=== PATIENT | female | born 1945 | race Caucasian/White ===

== ENCOUNTER 2017-02-09 11:08 | Outpatient (CLI) | payer MEDICARE, MEDICAID ==
[2017-02-09 12:21] LABS: Anion Gap 14 mmol/L (10-20); BUN (Urea Nitrogen) 10 mg/dL (9.8-20.1); Calc. Creatinine Clearance 0 mL/min (70-130); Calcium 9.3 mg/dL (7.8-10.44); Carbon Dioxide 23 mmol/L (23-31); Chloride 103 mmol/L (98-107); Estimated GFR-MDRD 35; Glucose 90 mg/dL (83-110); Potassium 4.3 mmol/L (3.5-5.1); Sodium 136 mmol/L (136-145)
[2017-02-09 13:00] LABS: Hemoglobin 13.4 g/dL (12.0-16.0)
[2017-02-09 18:18] LABS: Creatinine, Urine 112.65 mg/dL (47-110); Protein, Urine Random Quant Less than 10 mg/dL
== END 2017-02-09 11:09 | disposition home or self-care (01) ==
LOC: MADLAB 11:08
PROVIDERS: ATTEND Internal Medicine Nephrology
DX: I12.9 Hypertensive chronic kidney disease with stage 1 through stage 4 chronic kidney disease, or unspecified chronic kidney disease (principal); N18.3 Chronic kidney disease, stage 3 (moderate); E55.9 Vitamin D deficiency, unspecified
CPT/HCPCS: 36415; 80048; 82306; 82570; 83970; 84156; 85014; 85018

== ENCOUNTER 2017-11-17 09:45 | Outpatient (CLI) | payer MEDICARE, MEDICAID ==
[2017-11-17 11:16] LABS: Anion Gap 16 mmol/L (10-20); BUN (Urea Nitrogen) 9 mg/dL (9.8-20.1); Calc. Creatinine Clearance 0 mL/min (70-130); Calcium 8.6 mg/dL (7.8-10.44); Carbon Dioxide 17 mmol/L (23-31); Chloride 111 mmol/L (98-107); Estimated GFR-MDRD 37; Glucose 100 mg/dL (83-110); Potassium 3.9 mmol/L (3.5-5.1); Sodium 140 mmol/L (136-145)
== END 2017-11-17 09:46 | disposition home or self-care (01) ==
LOC: MADLABBHPM 09:45
PROVIDERS: ATTEND Family Medicine
DX: I10 Essential (primary) hypertension (principal)
CPT/HCPCS: 36415; 80048

== ENCOUNTER 2017-11-26 00:47 | Emergency (ER) | payer MEDICARE, MEDICAID ==
[2017-11-26] MEDS ORDERED: Ketorolac Tromethamine 30 MG/ML VIAL ONE (01:28)
[2017-11-26 01:48] LABS: #Basophils 0.2 thou/uL (0.0-0.2); #Eosinphils 0.2 thou/uL (0.0-0.7); #Lymphocytes 3.1 thou/uL (1.20-3.40); #Monocytes 1.6 thou/uL (0.11-0.59); #Neutrophils 10.7 thou/uL (1.40-6.50); %Lymphocytes 19.8 % (21.0-51.0); %Monocytes 10.1 % (0.0-10.0); %Neutrophils 68.2 % (42.0-75.0); Hemoglobin 12.4 g/dL (12.0-16.0); Mean Corpuscular HGB CONC 33.6 g/dL (32.0-36.0); Mean Corpuscular Volume 92.2 fl (81.0-99.0); Mean Platelet Volume 9.1 fL (7.4-10.4); Platelet Count 208 thou/uL (130-400); RBC Distribution Width 13.4 % (11.5-14.5); Red Blood Cell (RBC) Count 3.99 mill/uL (4.20-5.40); White Blood Cell (WBC) Count 15.7 thou/uL (4.8-10.8)
[2017-11-26 01:50] LABS: ALT (SGPT) 13 U/L (8-55); AST (SGOT) 30 U/L (5-34); Albumin 3.6 g/dL (3.4-4.8); Alkaline Phosphatase 139 U/L (40-150); Anion Gap 14 mmol/L (10-20); BUN (Urea Nitrogen) 11 mg/dL (9.8-20.1); Bilirubin, Total 0.6 mg/dL (0.2-1.2); CK (CPK) 178 U/L (29-168); Calc. Creatinine Clearance 0 mL/min (70-130); Calcium 8.6 mg/dL (7.8-10.44); Carbon Dioxide 19 mmol/L (23-31); Chloride 106 mmol/L (98-107); Estimated GFR-MDRD 33; Globulin 3.6 g/dL (2.4-3.5); Glucose 130 mg/dL (83-110); Potassium 3.4 mmol/L (3.5-5.1); Protein, Total 7.2 g/dL (6.0-8.3); Sodium 136 mmol/L (136-145)
[2017-11-26 01:57] LABS: CKMB 1.1 ng/mL (0-6.6); Troponin I Less than 0.010 ng/mL (< 0.028)
[2017-11-26] MEDS ORDERED: cefTRIAXone\\ROCEPHIN 1 GM VIAL ONE (02:11)
--- NOTE | 2017-11-26 08:05 | RAD ---
CHEST PA AND LATERAL: Date: 11/26/17 HISTORY: 72-year-old female with history of dyspnea. COMPARISON: 06/22/15. FINDINGS: There is evidence of pleural and parenchymal opacity changes in the left base consistent with small p leural effusion and some left lower lobe infiltrative changes including some left lower lobe pneumoni a with some linear subsegmental atelectatic changes noted in both bases as well. Atherosclerosis of a sidney with some ectasia. IMPRESSION: Pleural and parenchymal opacity changes in the left base, evidence for pleural effusion and possibly mild pneumonia with some linear parenchymal changes and evidence for subsegmental atelectasis. Treatm ent and short-term follow-up suggested. POS: [facility]
--- NOTE | 2017-11-26 08:34 | CT ---
PRELIMINARY REPORT/[facility]/EMERGENCY AFTER HOURS PROCEDURE: Addendum created by Adrian Rajan MD on 11/26/2017 3:29 AM Central Time ([place] & [place]) Findings discu ssed with MELI SIDDIQI MD at time of interpretation. Initial Report created on 11/26/2017 3:23 AM Ce ntral Time ([place] & [place]) EXAM: CT Abdomen and Pelvis Without Intravenous Contrast EXAM DATE/TIME: 11/26/2017 1:46 AM CLINICAL HISTORY: 72 years old, female; Pain; Abdominal pain; Patient HX: Uterus CA, abdomen pain TECHNIQUE: Axial computed tomography images of the abdomen and pelvis without intravenous contrast. All CT scans at this facility use one or more dose reduction techniques, viz.: automated exposure control; ma/kV adjustment per patient size (including targeted exams where dose is matched to indication; i.e. head); or iterative reconstruction technique. COMPARISON: No relevant prior studies available. FINDINGS: Lower thorax: Trace left pleural effusion. Bibasilar subsegmental atelectasis. Small peripheral wedge -shaped groundglass opacity in the posteromedial right lower lobe (image 13, series 2 and image 145, series 300) does not conform to the expected morphology of subsegmental atelectasis and may represent a pulmonary infarction or pneumonia. ABDOMEN: Liver: Normal. No mass. Gallbladder and bile ducts: Normal. No calcified stones. No ductal dilation. Pancreas: Normal. No ductal dilation. Spleen: Normal. No splenomegaly. Adrenals: Normal. No mass. Kidneys and ureters: Normal. No hydronephrosis. Stomach and bowel: No bowel wall thickening or intestinal obstruction. Appendix: Appendix not visualized. No evidence of appendicitis. PELVIS: Bladder: Unremarkable as visualized. Reproductive: Prior hysterectomy. ABDOMEN and PELVIS: Intraperitoneal space: Normal. No free air. No significant fluid collection. Bones/joints: No acute fracture. No dislocation. Soft tissues: Unremarkable. Vasculature: Normal. No abdominal aortic aneurysm. Lymph nodes: Normal. No enlarged lymph nodes. IMPRESSION: Small peripheral wedge-shaped groundglass opacity in the posteromedial right lower lobe (image 13, se travon 2 and image 145, series 300) does not conform to the expected morphology of subsegmental atelect asis and may represent a pulmonary infarction or pneumonia. Recommend CT-PA protocol chest CT for further evaluation. Thank you for allowing us to participate in the care of your patient. Dictated and Authenticated by: Adrian Rajan MD 11/26/2017 3:23 AM Central Time ([place] & [place]) FINAL REPORT CT ABDOMEN AND PELVIS WITHOUT IV CONTRAST: I agree with the preliminary report given by Dr. Adrian Rajan of [facility]. POS: [facility]
[2017-11-26] MEDS ORDERED: Sodium Chloride 0.9% 100 ML BAG ONE (12:31)
== END 2017-11-26 04:32 | disposition short-term general hospital (02) ==
LOC: MADERS 00:47
DX: J18.9 Pneumonia, unspecified organism (principal); J44.9 Chronic obstructive pulmonary disease, unspecified; E78.5 Hyperlipidemia, unspecified; I12.9 Hypertensive chronic kidney disease with stage 1 through stage 4 chronic kidney disease, or unspecified chronic kidney disease; N18.4 Chronic kidney disease, stage 4 (severe); F31.9 Bipolar disorder, unspecified; Z87.891 Personal history of nicotine dependence; Z79.899 Other long term (current) drug therapy; Z86.73 Personal history of transient ischemic attack (TIA), and cerebral infarction without residual deficits; Z79.82 Long term (current) use of aspirin
CPT/HCPCS: 36415; 71046; 74176; 80053; 82550; 82553; 83605; 84484; 85025; 85379; 87040; 87077; 87149; 87186; 93005; 94640; 94760; 96365; 96375; J0696; J1885; J7050; J7620

== ENCOUNTER 2018-03-16 09:55 | Outpatient (CLI) | payer MEDICARE, MEDICAID ==
[2018-03-16 14:29] LABS: Anion Gap 15 mmol/L (10-20); BUN (Urea Nitrogen) 13 mg/dL (9.8-20.1); Calc. Creatinine Clearance 0 mL/min (70-130); Calcium 8.6 mg/dL (7.8-10.44); Carbon Dioxide 18 mmol/L (23-31); Chloride 111 mmol/L (98-107); Estimated GFR-MDRD 38; Glucose 96 mg/dL (83-110); Phosphorus 3.6 mg/dL (2.3-4.7); Potassium 4.1 mmol/L (3.5-5.1); Sodium 140 mmol/L (136-145)
== END 2018-03-16 09:56 | disposition home or self-care (01) ==
LOC: MADLAB 09:55
PROVIDERS: ATTEND Internal Medicine Nephrology
DX: I12.9 Hypertensive chronic kidney disease with stage 1 through stage 4 chronic kidney disease, or unspecified chronic kidney disease (principal); N18.3 Chronic kidney disease, stage 3 (moderate); N25.81 Secondary hyperparathyroidism of renal origin; R60.9 Edema, unspecified
CPT/HCPCS: 36415; 80048; 83970; 84100

== ENCOUNTER 2018-03-21 14:23 | Outpatient (CLI) | payer MEDICARE, MEDICAID ==
--- NOTE | 2018-03-21 15:20 | RAD ---
THREE VIEWS RIGHT FOOT: Date: 03-21-18 History: Foot contusion. FINDINGS: Lisfranc joint is normally aligned. No fracture or dislocation is seen involving the right foot. Ther e is mild osteoarthritis involving the first metatarsal phalangeal joint. Tiny posterior and plantar calcaneal enthesophytes are seen. There is subcutaneous soft tissue swelling seen at the dorsal aspec t of the forefoot. Post-surgical changes of the tibia are noted related to internal fixation of right tibial fracture. Fracture of mid diaphysis of the right ulna is present. IMPRESSION: 1. Subcutaneous soft tissue swelling dorsal aspect of the foot, but no underlying fracture is seen an d there is no dislocation. 2. 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 POS: [facility]
== END 2018-03-21 14:24 | disposition home or self-care (01) ==
LOC: MADRAD 14:23
PROVIDERS: ATTEND Family Medicine
DX: S90.31XA Contusion of right foot, initial encounter (principal); M79.89 Other specified soft tissue disorders; M19.071 Primary osteoarthritis, right ankle and foot

== ENCOUNTER 2020-07-01 13:49 | Emergency (ER) | payer MEDICARE, MEDICAID ==
[2020-07-01 20:26] LABS: #Basophils 0.2 thou/uL (0.0-0.2); #Eosinphils 0.5 thou/uL (0.0-0.7); #Lymphocytes 4.3 thou/uL (1.20-3.40); #Neutrophils 5.2 thou/uL (1.40-6.50); %Basophils 1.9 % (0.0-1.0); %Eosinophils 4.1 % (0.0-10.0); %Lymphocytes 38.7 % (21.0-51.0); %Monocytes 8.6 % (0.0-10.0); %Neutrophils 46.7 % (42.0-75.0); Hemoglobin 14.3 g/dL (12.0-16.0); Mean Corpuscular Hemoglobin 31.1 pg (27.0-31.0); Mean Corpuscular Volume 97.3 fL (78.0-98.0); Mean Platelet Volume 9.6 fL (7.4-10.4); Platelet Count 252 thou/uL (130-400); RBC Distribution Width 14.8 % (11.5-14.5); White Blood Cell (WBC) Count 11.1 thou/uL (4.8-10.8)
[2020-07-01 20:48] LABS: ALT (SGPT) 26 U/L (8-55); AST (SGOT) 51 U/L (5-34); Albumin 3.8 g/dL (3.4-4.8); Alkaline Phosphatase 119 U/L (40-110); Anion Gap 16 mmol/L (10-20); BUN (Urea Nitrogen) 13 mg/dL (9.8-20.1); Bilirubin, Total 0.3 mg/dL (0.2-1.2); Calc. Creatinine Clearance 0 mL/min (70-130); Calcium 8.6 mg/dL (7.8-10.44); Carbon Dioxide 22 mmol/L (23-31); Chloride 107 mmol/L (98-107); Globulin 3.5 g/dL (2.4-3.5); Glucose 105 mg/dL (83-110); Potassium 3.4 mmol/L (3.5-5.1); Protein, Total 7.3 g/dL (6.0-8.3); Sodium 142 mmol/L (136-145)
--- NOTE | 2020-07-01 20:51 | RAD ---
CHEST ONE VIEW: Indication: History of cough and fever. Comparison: Two views of the chest, 11-26-17 FINDINGS: There is stable cardiomegaly. No consolidation is evident. No pleural effusion or pneumothorax is caren dent. No acute osseous abnormality. IMPRESSION: Cardiomegaly without additional acute abnormality. POS: [facility]
[2020-07-03 16:44] LABS: SARS-CoV-2 PCR by NAA Not Detected (NotDetected)
== END 2020-07-01 22:48 | disposition home or self-care (01) ==
LOC: MADERS 13:49
DX: R05 Cough (principal); Z20.822 Contact with and (suspected) exposure to COVID-19; I48.91 Unspecified atrial fibrillation; J44.9 Chronic obstructive pulmonary disease, unspecified; I20.9 Angina pectoris, unspecified; E78.5 Hyperlipidemia, unspecified; I13.10 Hypertensive heart and chronic kidney disease without heart failure, with stage 1 through stage 4 chronic kidney disease, or unspecified chronic kidney disease; I50.9 Heart failure, unspecified; N18.4 Chronic kidney disease, stage 4 (severe); Z86.73 Personal history of transient ischemic attack (TIA), and cerebral infarction without residual deficits; Z87.891 Personal history of nicotine dependence; Z79.82 Long term (current) use of aspirin; Z79.899 Other long term (current) drug therapy; Z85.42 Personal history of malignant neoplasm of other parts of uterus; Z15.89 Genetic susceptibility to other disease
CPT/HCPCS: 71045; 80053; 85025; 87635; 93005; U0003; U0005

== ENCOUNTER 2021-09-01 12:14 | Outpatient (CLI) | payer MEDICARE, MEDICAID | END 2021-09-01 12:15 | disposition home or self-care (01) | LOC: MADRAD 12:14 | PROVIDERS: ATTEND Family Medicine | DX: M25.551 Pain in right hip (principal) ==

== ENCOUNTER 2023-04-26 16:09 | Outpatient (CLI) | payer OTHER, MEDICAID | END 2023-04-26 16:10 | disposition home or self-care (01) | LOC: MADRAD 16:09 | PROVIDERS: ATTEND Internal Medicine | DX: J44.9 Chronic obstructive pulmonary disease, unspecified (principal) | CPT/HCPCS: 71046 ==

== ENCOUNTER 2024-02-07 17:26 | Emergency (ER) | payer OTHER, MEDICAID ==
[2024-02-07] MEDS ORDERED: HYDROcodone/Acetaminophen 5/325 mg Tablet ONE (18:09)
== END 2024-02-07 19:25 | disposition home or self-care (01) ==
LOC: MADERS 17:26
DX: S13.4XXA Sprain of ligaments of cervical spine, initial encounter (principal); M25.511 Pain in right shoulder; I11.0 Hypertensive heart disease with heart failure; I50.9 Heart failure, unspecified; Z87.891 Personal history of nicotine dependence; V89.2XXA Person injured in unspecified motor-vehicle accident, traffic, initial encounter
CPT/HCPCS: 70450; 72125